=== PATIENT | female | born 1995 | race Caucasian/White ===

== ENCOUNTER 2020-05-15 15:18 | Emergency (ER) | payer BC, SELFPAY ==
[~2020-05-15] VITALS: Ht 160 cm; Wt 49.9 kg
[2020-05-15 15:30] VITALS: BP_SYST 104
--- NOTE | 2020-05-15 15:30 | NUR ---
PT TO REMAIN IN COVID TENT UNTIL ER BED BECOMES AVAILABLE.
--- NOTE | 2020-05-15 15:32 | NUR ---
PT IS AAO AND AMBULATORY C/O RIGHT SIDED ABDOMINAL PAIN X 3 DAYS. PT REPORTS N/V/D SINCE THEN AND HAD A FEVER 2 DAYS AGO. PT REPORTS PAIN SCALE 8/10. V/S STABLE CURRENTLY. PT DENIES SOB OR ANY RESPIRATORY S/S.
--- NOTE | 2020-05-15 16:30 | NUR ---
ER at bedside examining patient.
--- NOTE | 2020-05-15 16:32 | NUR ---
ua collected and sent to the lab
--- NOTE | 2020-05-15 16:35 | NUR ---
Patient to ER bed 3 to gown for evaluation. Side rails up.
[2020-05-15] MEDS ORDERED: ONDANSETRON HCL 4 MG/2 ML VIAL IVP ONE (16:45)
[2020-05-15] MEDS ORDERED: NACL 0.9% 1,000 ML IV ONE (16:45)
--- NOTE | 2020-05-15 16:45 | NUR ---
pt arrives from home w/ c/o diarrhea, nausea, and abd pain x 3 days. Pt denies any fever. Will continue to monitor.
[2020-05-15] MEDS ORDERED: KETOROLAC TROMETHAMINE 30 MG VIAL IVP ONE (17:00)
--- NOTE | 2020-05-15 17:00 | NUR ---
# 22 gauge angiocath placed to LAC. Use of asceptic technique. Opsite placed over site. Blood return noted. Blood for lab drawn from site. Flushed with 10 cc of normal saline. No evidence of infiltration noted. Patient tolerated well.
[2020-05-15 17:19] LABS: BILIRUBIN,URINE NEGATIVE (NEGATIVE); BLOOD, URINE 1+ (NEGATIVE); COLOR,URINE YELLOW (YELLOW); GLUCOSE,URINE NEGATIVE (NEGATIVE); KETONES,URINE NEGATIVE (NEGATIVE); LEUKOCYTE ESTERASE ,URINE NEGATIVE (NEGATIVE); NITRITE, URINE NEGATIVE (NEGATIVE); PROTEIN URINE NEGATIVE (NEGATIVE); UROBILINOGEN,URINE 0.2 (0.2-1.0)
[2020-05-15 17:20] LABS: CLARITY/URINE HAZY (CLEAR)
[2020-05-15 17:23] LABS: BACTERIA,URINE MODERATE /HPF (None Seen); MUCUS,URINE 2+ /LPF (None Seen); WBC,URINE 0-3 /HPF (0-3)
[2020-05-15 19:16] VITALS: BP_SYST 104
--- NOTE | 2020-05-15 19:17 | NUR ---
Patient given written and verbal discharge instructions and verbalizes understanding. ER MD discussed with patient the results and treatment provided. Patient in stable condition. ID arm band removed. IV catheter removed intact and dressing applied, no active bleeding. Rx of Zofran given. Patient educated on pain management and to follow up with PMD. Pain Scale 0/10. Opportunity for questions provided and answered. Medication side effect fact sheet provided.
== END 2020-05-15 19:16 | disposition home or self-care (01) ==
LOC: SED 15:18
DX: A08.4 Viral intestinal infection, unspecified (principal); R19.7 Diarrhea, unspecified
CPT/HCPCS: 81000; 96361; 96374; 96375; 99284; J1885; J2405; J7030

== ENCOUNTER 2021-04-18 11:13 | Emergency (ER) | payer BC, MEDICAID ==
[~2021-04-18] VITALS: Ht 160 cm; Wt 53.1 kg
[2021-04-18 11:25] VITALS: BP_SYST 107
[2021-04-18] MEDS ORDERED: NACL 0.9% 1,000 ML IV ONE (11:45)
[2021-04-18 11:53] LABS: BILIRUBIN,URINE NEGATIVE (NEGATIVE); BLOOD, URINE NEGATIVE (NEGATIVE); CLARITY/URINE CLEAR (CLEAR); COLOR,URINE YELLOW (YELLOW); GLUCOSE,URINE NEGATIVE (NEGATIVE); KETONES,URINE NEGATIVE (NEGATIVE); LEUKOCYTE ESTERASE ,URINE NEGATIVE (NEGATIVE); NITRITE, URINE NEGATIVE (NEGATIVE); PH,URINE 7.5 (5.0-8.0); PROTEIN URINE NEGATIVE (NEGATIVE); UROBILINOGEN,URINE 0.2 (0.2-1.0)
[2021-04-18 12:19] LABS: BASOPHILS % (AUTO) 0.6 % (0.0-2.0); EOSINOPHILS % (AUTO) 0.4 % (0.0-4.0); HEMATOCRIT 35.4 % (36-48); HEMOGLOBIN 12.3 g/dL (12.0-16.0); LYMPHOCYTES # (AUTO) 0.9 K/uL (1.0-5.5); LYMPHOCYTES % (AUTO) 15.7 % (20.5-51.5); MEAN CORPUSCULAR HEMOGLOBIN 30 pg (27-31); MEAN CORPUSCULAR HGB CONC 35 % (32-36); MEAN CORPUSCULAR VOLUME 86 fL (79.0-98.0); MONOCYTES # (AUTO) 0.6 K/uL (0.0-1.0); MONOCYTES % (AUTO) 9.6 % (1.7-9.3); NEUTROPHILS # (AUTO) 4.4 K/uL (1.8-7.7); NEUTROPHILS % (AUTO) 73.7 % (40.0-70.0); PLATELET COUNT (AUTO) 254 K/uL (130-430); RED BLOOD CELL COUNT(AUTO) 4.12 MIL/uL (4.2-6.2); RED CELL DISTRIBUTION WIDTH 12.3 % (9.0-15.0)
[2021-04-18 12:35] LABS: CALCIUM 8.8 mg/dL (8.4-11.0); CREATININE 0.55 mg/dL (0.55-1.30)
[2021-04-18 12:47] LABS: ALBUMIN 3.5 g/dL (3.4-4.8); TOTAL BILIRUBIN 0.5 mg/dL (0.0-1.0)
[2021-04-18] MEDS ORDERED: METO-290 PO (13:37)
[2021-04-18 13:59] VITALS: BP_SYST 107
== END 2021-04-18 13:59 | disposition home or self-care (01) ==
LOC: SED 11:13
DX: O99.611 Diseases of the digestive system complicating pregnancy, first trimester (principal); K52.9 Noninfective gastroenteritis and colitis, unspecified; Z20.822 Contact with and (suspected) exposure to COVID-19; Z3A.01 Less than 8 weeks gestation of pregnancy
CPT/HCPCS: 36415; 76801; 80053; 81003; 81025; 83690; 84702; 85025; 87426; 96360; 99284; J7030

== ENCOUNTER 2021-04-30 09:35 | Emergency (ER) | payer BC, MEDICAID ==
[~2021-04-30] VITALS: Ht 162.6 cm; Wt 49.9 kg
[2021-04-30 09:35] VITALS: BP_SYST 104
[~2021-04-30 09:35] MED LIST: METO-290 PO
--- NOTE | 2021-04-30 09:35 | NUR ---
BROUGHT BACK TO BED #7 AND TRIAGED. REPORT GIVEN TO PAMELA
--- NOTE | 2021-04-30 09:37 | NUR ---
PT CAME TO ER C/O N/V STARTING THIS AM, STATES SHE THREW UP BLOOD. ALSO REPORTS EPIGASTRIC ABD PAIN AND STATES SHE IS 8 WEEKS . DENIES ANY VAGINAL BLEEDING. PT IS AMBULATORY, AAOX4, V/S STABLE UPON ARRIVAL
--- NOTE | 2021-04-30 09:48 | NUR ---
ER DR. CAMPBELL AT THE BEDSIDE EXAMINING PT
[2021-04-30] MEDS ORDERED: NACL 0.9% 1,000 ML IV ONE (10:00)
[2021-04-30] MEDS ORDERED: ONDANSETRON 4 MG ODT TAB PO ONE (10:00)
--- NOTE | 2021-04-30 10:00 | NUR ---
# 20 gauge angiocath placed to LAC. Use of asceptic technique. Opsite placed over site. Blood return noted. Blood for lab drawn from site. Flushed with 10 cc of normal saline. No evidence of infiltration noted. Patient tolerated well.
[2021-04-30 10:09] LABS: BILIRUBIN,URINE NEGATIVE (NEGATIVE); BLOOD, URINE NEGATIVE (NEGATIVE); CLARITY/URINE CLOUDY (CLEAR); COLOR,URINE YELLOW (YELLOW); GLUCOSE,URINE NEGATIVE (NEGATIVE); KETONES,URINE NEGATIVE (NEGATIVE); LEUKOCYTE ESTERASE ,URINE NEGATIVE (NEGATIVE); NITRITE, URINE NEGATIVE (NEGATIVE); PH,URINE 8.5 (5.0-8.0); PROTEIN URINE NEGATIVE (NEGATIVE); UROBILINOGEN,URINE 0.2 (0.2-1.0)
[2021-04-30 10:20] LABS: BASOPHILS % (AUTO) 0.5 % (0.0-2.0); EOSINOPHILS % (AUTO) 0.4 % (0.0-4.0); HEMATOCRIT 36.1 % (36-48); HEMOGLOBIN 12.4 g/dL (12.0-16.0); LYMPHOCYTES # (AUTO) 0.9 K/uL (1.0-5.5); LYMPHOCYTES % (AUTO) 15.7 % (20.5-51.5); MEAN CORPUSCULAR HEMOGLOBIN 30 pg (27-31); MEAN CORPUSCULAR HGB CONC 35 % (32-36); MEAN CORPUSCULAR VOLUME 86 fL (79.0-98.0); MONOCYTES # (AUTO) 0.4 K/uL (0.0-1.0); NEUTROPHILS # (AUTO) 4.5 K/uL (1.8-7.7); NEUTROPHILS % (AUTO) 76.4 % (40.0-70.0); PLATELET COUNT (AUTO) 250 K/uL (130-430); RED CELL DISTRIBUTION WIDTH 12.4 % (9.0-15.0); WHITE BLOOD COUNT (AUTO) 5.9 K/uL (4.8-10.8)
[2021-04-30 10:28] LABS: BACTERIA,URINE RARE /HPF (None Seen); RBC,URINE 0-3 /HPF (0-3); WBC,URINE 0-3 /HPF (0-3)
[2021-04-30 10:29] LABS: URINE AMORPHOUS PHOSPHATES 4+ /HPF (None Seen)
[2021-04-30 10:32] LABS: ANION GAP 10 (5-15); CALCIUM 8.9 mg/dL (8.4-11.0); CHLORIDE 104 mmol/L (98-107); CREATININE 0.65 mg/dL (0.55-1.30); GLUCOSE 95 mg/dL (70-99); POTASSIUM 3.5 mmol/L (3.5-5.1); SODIUM SERUM 139 mmol/L (136-145); UREA NITROGEN, BLOOD 8 mg/dL (8-21)
[2021-04-30 10:33] LABS: GFR AFRICAN AMERICAN 144 mL/min (>90)
[2021-04-30 10:42] LABS: ACETONE, SERUM NEGATIVE (NEGATIVE)
--- NOTE | 2021-04-30 10:43 | NUR ---
TAKEN TO RADIOLOGY AMBULATORY
--- NOTE | 2021-04-30 10:51 | NUR ---
RETURN FROM ULTRASOUND
[2021-04-30 10:59] LABS: ALANINE AMINOTRANSFERASE 15 U/L (12-78); ALBUMIN 3.6 g/dL (3.4-4.8); AMYLASE 56 U/L (0-100); ASPARTATE AMINOTRANSFERASE 11 U/L (10-37); LIPASE 113 U/L (73-393); TOTAL BILIRUBIN 0.5 mg/dL (0.0-1.0)
[2021-04-30 11:00] LABS: HCG,QUANTITATIVE 109245 mIU/ML (0-6)
--- NOTE | 2021-04-30 11:00 | NUR ---
PT RESTING IN BED, NO S/SX OF DISTRESS, V/S STABLE
[2021-04-30] MEDS ORDERED: ONDA4TAB5 PO (11:37)
[2021-04-30 11:44] VITALS: BP_SYST 111
--- NOTE | 2021-04-30 11:46 | NUR ---
Patient given written and verbal discharge instructions and verbalizes understanding. ER MD discussed with patient the results and treatment provided. Patient in stable condition. ID arm band removed. IV catheter removed intact and dressing applied, no active bleeding. Rx of ZOFRAN given. Patient educated on pain management and to follow up with PMD. Pain Scale 0/10. Opportunity for questions provided and answered. Medication side effect fact sheet provided.
== END 2021-04-30 11:46 | disposition home or self-care (01) ==
LOC: SED 09:35
DX: O21.0 Mild hyperemesis gravidarum (principal); Z3A.01 Less than 8 weeks gestation of pregnancy; Z79.899 Other long term (current) drug therapy
CPT/HCPCS: 36415; 76801; 80053; 81000; 81025; 82009; 82150; 83605; 83690; 84702; 85025; 96360; 99284; J7030; Q0162

== ENCOUNTER 2021-06-02 22:27 | Emergency (ER) | payer BC, MEDICAID, SELFPAY ==
[~2021-06-02] VITALS: Ht 160 cm; Wt 53.5 kg
[~2021-06-02 22:27] MED LIST changes: +ONDA4TAB5 PO
[2021-06-02 22:36] VITALS: BP_SYST 126
[2021-06-03] MEDS ORDERED: METOCLOPRAMIDE HCL 10 MG/2 ML VIAL IVP ONE (01:00)
[2021-06-03] MEDS ORDERED: MORPHINE 4 MG INJ. 4 MG/ML VIAL IVP ONE (01:00)
[2021-06-03] MEDS ORDERED: DIPHENHYDRAMINE INJ 50 MG/ML VIAL IVP ONE (01:00)
[2021-06-03] MEDS ORDERED: NACL 0.9% 1,000 ML IV ONE (01:00)
[2021-06-03 01:16] LABS: BILIRUBIN,URINE NEGATIVE (NEGATIVE); BLOOD, URINE NEGATIVE (NEGATIVE); CLARITY/URINE CLEAR (CLEAR); COLOR,URINE YELLOW (YELLOW); GLUCOSE,URINE NEGATIVE (NEGATIVE); KETONES,URINE NEGATIVE (NEGATIVE); LEUKOCYTE ESTERASE ,URINE NEGATIVE (NEGATIVE); NITRITE, URINE NEGATIVE (NEGATIVE); PROTEIN URINE NEGATIVE (NEGATIVE); UROBILINOGEN,URINE 0.2 (0.2-1.0)
[2021-06-03 01:21] LABS: EOSINOPHILS % (AUTO) 0.5 % (0.0-4.0); HEMOGLOBIN 11.9 g/dL (12.0-16.0); MEAN CORPUSCULAR HGB CONC 35 % (32-36); MONOCYTES # (AUTO) 0.7 K/uL (0.0-1.0); NEUTROPHILS # (AUTO) 5.2 K/uL (1.8-7.7)
[2021-06-03 01:23] LABS: CALCIUM 8.7 mg/dL (8.4-11.0); CREATININE 0.46 mg/dL (0.55-1.30); POTASSIUM 3.7 mmol/L (3.5-5.1)
[2021-06-03 01:26] LABS: BASOPHILS % (AUTO) 0.5 % (0.0-2.0); LYMPHOCYTES # (AUTO) 1.7 K/uL (1.0-5.5); MEAN CORPUSCULAR HEMOGLOBIN 31 pg (27-31); MEAN CORPUSCULAR VOLUME 88 fL (79.0-98.0); MONOCYTES % (AUTO) 8.5 % (1.7-9.3); NEUTROPHILS % (AUTO) 68.5 % (40.0-70.0); PLATELET COUNT (AUTO) 269 K/uL (130-430); RED BLOOD CELL COUNT(AUTO) 3.87 MIL/uL (4.2-6.2); WHITE BLOOD COUNT (AUTO) 7.6 K/uL (4.8-10.8)
[2021-06-03 01:53] LABS: ALBUMIN 3.4 g/dL (3.4-4.8); TOTAL BILIRUBIN 0.4 mg/dL (0.0-1.0)
[2021-06-03 10:46] VITALS: BP_SYST 96
== END 2021-06-03 10:45 | disposition home or self-care (01) ==
LOC: SED 22:27
DX: O26.892 Other specified pregnancy related conditions, second trimester (principal); R10.31 Right lower quadrant pain; O21.8 Other vomiting complicating pregnancy; Z3A.14 14 weeks gestation of pregnancy; Z20.822 Contact with and (suspected) exposure to COVID-19
CPT/HCPCS: 36415; 76705; 76805; 80053; 81003; 83690; 84702; 85025; 87426; 96361; 96374; 96375; 99285; J1200; J2270; J2765; J7030

== ENCOUNTER 2021-07-13 04:14 | Observation (INO) | payer BC, MEDICAID, SELFPAY ==
[~2021-07-13] VITALS: Ht 160 cm; Wt 56.2 kg
== END 2021-07-13 05:37 | disposition home or self-care (01) ==
LOC: SPU 04:14
PROVIDERS: ADMIT Specialist; ATTEND Specialist
DX: O26.892 Other specified pregnancy related conditions, second trimester (principal); R10.32 Left lower quadrant pain; R06.02 Shortness of breath; O99.891 Other specified diseases and conditions complicating pregnancy; M79.601 Pain in right arm; O99.342 Other mental disorders complicating pregnancy, second trimester; F41.9 Anxiety disorder, unspecified; Z3A.20 20 weeks gestation of pregnancy
CPT/HCPCS: 81002; G0378

== ENCOUNTER 2021-11-17 19:53 | Inpatient (IN) | payer BC, MEDICAID, SELFPAY ==
[~2021-11-17] VITALS: Ht 2.5 cm; Wt 0.0 kg
[2021-11-17 21:20] LABS: BASOPHILS % (AUTO) 0.5 % (0.0-2.0); EOSINOPHILS % (AUTO) 0.2 % (0.0-4.0); HEMATOCRIT 35.2 % (36-48); LYMPHOCYTES # (AUTO) 1.1 K/uL (1.0-5.5); LYMPHOCYTES % (AUTO) 15.3 % (20.5-51.5); MEAN CORPUSCULAR HEMOGLOBIN 30 pg (27-31); MEAN CORPUSCULAR HGB CONC 34 % (32-36); MEAN CORPUSCULAR VOLUME 87 fL (79.0-98.0); MONOCYTES # (AUTO) 0.7 K/uL (0.0-1.0); NEUTROPHILS # (AUTO) 5.4 K/uL (1.8-7.7); PLATELET COUNT (AUTO) 195 K/uL (130-430); RED BLOOD CELL COUNT(AUTO) 4.03 MIL/uL (4.2-6.2); RED CELL DISTRIBUTION WIDTH 12.7 % (9.0-15.0); WHITE BLOOD COUNT (AUTO) 7.3 K/uL (4.8-10.8)
[2021-11-17 21:44] LABS: CALCIUM 8.9 mg/dL (8.4-11.0); CREATININE 0.57 mg/dL (0.55-1.30); POTASSIUM 3.9 mmol/L (3.5-5.1)
[2021-11-17 21:50] LABS: ALBUMIN 2.4 g/dL (3.4-4.8); TOTAL BILIRUBIN 0.3 mg/dL (0.0-1.0)
[2021-11-17] MEDS ORDERED: FLUVASTATIN SODIUM 20 MG PO SCH (22:30)
[2021-11-17] MEDS ORDERED: CHOLESTYRAMINE/SUCROSE 4 GM/PACKET ONE (22:47)
[2021-11-17] MEDS: CHOLESTYRAMINE/SUCROSE 4 GM/PACKET PO SCH (23:05)
[2021-11-17] MEDS ORDERED: TEMAZEPAM 15 MG CAPSULE ONE (23:18)
[2021-11-18] MEDS ORDERED: TERBUTALINE SULFATE 1 MG/ML VIAL SUBCUT ONE (01:30)
[2021-11-18] MEDS ORDERED: LR 1,000 ML IV ONE (01:30)
[2021-11-18] MEDS ORDERED: OXYTOCIN/0.9 % SODIUM CHLORIDE 1,000 ML IV SCH ×2 (01:30→17:00)
[2021-11-18] MEDS: NALBUPHINE HCL 10 MG/ML AMP IVP PRN ×3 (02:22→17:55)
[2021-11-18] MEDS: LR 1,000 ML IV SCH ×2 (02:41→06:14)
[2021-11-18 04:36] VITALS: BP_SYST 142
[2021-11-18] MEDS ORDERED: ROPIVACAINE HCL/PF 0.2% 200 ML ONE (05:51)
[2021-11-18] MEDS ORDERED: fentaNYL CITRATE/PF 100 MCG/2 ML AMP ONE (05:51)
[2021-11-18] MEDS ORDERED: ATORVASTATIN 10 MG TABLET PO SCH (07:00)
[2021-11-18] MEDS: CHOLESTYRAMINE/SUCROSE 4 GM/PACKET PO SCH ×2 (10:00→14:00)
[2021-11-18] MEDS ORDERED: METHYLERGONOVINE MALEATE 0.2 MG/ML AMP IM ONE (16:24)
[2021-11-18] MEDS ORDERED: METHYLERGONOVINE MALEATE 0.2 MG/ML AMP ONE (16:24)
[2021-11-18] MEDS ORDERED: FENT2mCg/mL-ROPIVA0.2%/NS EPID 200 ML EP SCH (16:45)
[2021-11-18] MEDS ORDERED: LR 500 ML IV ONE (16:45)
[2021-11-18] MEDS ORDERED: ANUSOL 1 EA SUPP.RECT (PREPARATION H) RC PRN (17:00)
[2021-11-18] MEDS ORDERED: NALOXONE HCL 0.4 MG/ML AMP (NARCAN) IVP PRN (17:00)
[2021-11-18] MEDS ORDERED: OXYCODONE/ACETAMINOPHEN 5-325 TABLET PO PRN ×2 (17:00)
[2021-11-18] MEDS ORDERED: MEASLES,MUMPS&RUBELLA VACC/PF 12500 UNIT/0.5 ML VIAL SUBQ PRN (17:00)
[2021-11-18] MEDS ORDERED: DIPH-TET-PERTUS Vaccine 0.5 ML VIAL (ADACEL) I.M. PRN (17:00)
[2021-11-18] MEDS ORDERED: DERMOPLAST SPRAY TP PRN (17:00)
[2021-11-18] MEDS ORDERED: OXYTOCIN/0.9 % SODIUM CHLORIDE 1,000 ML IV ONE (17:00)
[2021-11-18] MEDS ORDERED: METHYLERGONOVINE MALEATE 0.2 MG TABLET PO PRN (17:00)
[2021-11-18] MEDS ORDERED: LANOLIN 7 GM OINT. TP PRN (17:00)
[2021-11-18] MEDS ORDERED: RHO(D) IMMUNE GLOBULIN/MALTOSE 1500 UNITS/1.3 ML (WINHRO) IM PRN (17:00)
[2021-11-18] MEDS ORDERED: HYDROcodone/ACETAMIN 5-325 MG TAB (NORCO/ VICODIN) PO PRN (17:00)
[2021-11-18] MEDS ORDERED: HYDROCORTISONE 0.5% CREAM 28.4 GM CREAM.GM. TP PRN (17:00)
[2021-11-18] MEDS ORDERED: WITCH HAZEL LEAF 1 MED.PAD MED.PAD TP PRN (17:00)
[2021-11-18] MEDS ORDERED: ONDANSETRON HCL 4 MG/2 ML VIAL IVP PRN (17:45)
[2021-11-18] MEDS: IBUPROFEN 600 MG TABLET PO SCH (18:57)
[2021-11-18] MEDS ORDERED: TEMAZEPAM 7.5 MG CAPSULE PO SCH (21:00)
[2021-11-18] MEDS ORDERED: SENNOSIDES/DOCUSATE SODIUM 1 TAB TABLET(SENOKOT-S) PO SCH (21:00)
[2021-11-18] MEDS ORDERED: TEMAZEPAM 15 MG CAPSULE PO PRN (21:00)
[2021-11-19] MEDS: IBUPROFEN 600 MG TABLET PO SCH ×4 (06:42→18:33)
[2021-11-19] MEDS ORDERED: MINERAL OIL 30 ML UDC PO ONE (07:40)
[2021-11-19] MEDS ORDERED: LIDOCAINE PF 1% 30ML(POUR BTL) INJ ONE (07:40)
[2021-11-19] MEDS ORDERED: DOCUSATE SODIUM 100 MG CAPSULE PO SCH (09:00)
[2021-11-19 09:42] LABS: BASOPHILS % (AUTO) 0.3 % (0.0-2.0); EOSINOPHILS % (AUTO) 0.3 % (0.0-4.0); HEMATOCRIT 25.4 % (36-48); HEMOGLOBIN 8.8 g/dL (12.0-16.0); LYMPHOCYTES # (AUTO) 1.3 K/uL (1.0-5.5); LYMPHOCYTES % (AUTO) 12.7 % (20.5-51.5); MEAN CORPUSCULAR HEMOGLOBIN 31 pg (27-31); MEAN CORPUSCULAR HGB CONC 35 % (32-36); MEAN CORPUSCULAR VOLUME 88 fL (79.0-98.0); MONOCYTES # (AUTO) 0.9 K/uL (0.0-1.0); MONOCYTES % (AUTO) 8.8 % (1.7-9.3); NEUTROPHILS % (AUTO) 77.9 % (40.0-70.0); PLATELET COUNT (AUTO) 157 K/uL (130-430); RED BLOOD CELL COUNT(AUTO) 2.88 MIL/uL (4.2-6.2); RED CELL DISTRIBUTION WIDTH 12.8 % (9.0-15.0); WHITE BLOOD COUNT (AUTO) 10.2 K/uL (4.8-10.8)
== END 2021-11-19 23:40 | disposition home or self-care (01) | DRG 805 ==
LOC: SPU 19:55 → OBSVTOIN 11-18 01:00 → SPU 11-19 12:26
PROVIDERS: ADMIT Specialist; ATTEND Specialist
PROC: 10E0XZZ Delivery of Products of Conception, External Approach (ICD-10-PCS; principal; 2021-11-18)
PROC: 0W8NXZZ Division of Female Perineum, External Approach (ICD-10-PCS; 2021-11-18)
PROC: 3E0R3BZ Introduction of Anesthetic Agent into Spinal Canal, Percutaneous Approach (ICD-10-PCS; 2021-11-18)
PROC: 00HU33Z Insertion of Infusion Device into Spinal Canal, Percutaneous Approach (ICD-10-PCS; 2021-11-18)
DX: O26.62 Liver and biliary tract disorders in childbirth (principal); K83.1 Obstruction of bile duct; Z37.0 Single live birth; O42.92 Full-term premature rupture of membranes, unspecified as to length of time between rupture and onset of labor; O77.0 Labor and delivery complicated by meconium in amniotic fluid; Z20.822 Contact with and (suspected) exposure to COVID-19; Z3A.37 37 weeks gestation of pregnancy
CPT/HCPCS: 36415; 80053; 81002; 85025; 86592; 86886; 86900; 86901; 94760; G0378; J2001; J2210; J2300; J2405; J2590; J3010

== ENCOUNTER 2023-05-23 19:57 | Emergency (ER) | payer BC, MEDICAID ==
[~2023-05-23] VITALS: Ht 160 cm; Wt 56.7 kg
[2023-05-23 20:09] VITALS: BP_SYST 111; PULSE 98; RESP 18; TEMP 98.4; O2SAT 98
[2023-05-23 21:21] LABS: BASOPHILS % (AUTO) 0.4 % (0.0-2.0); EOSINOPHILS % (AUTO) 0.6 % (0.0-4.0); HEMATOCRIT 36.6 % (36-48); HEMOGLOBIN 12.6 g/dL (12.0-16.0); LYMPHOCYTES # (AUTO) 1.6 K/uL (1.0-5.5); LYMPHOCYTES % (AUTO) 19.2 % (20.5-51.5); MEAN CORPUSCULAR HEMOGLOBIN 29 pg (27-31); MEAN CORPUSCULAR HGB CONC 34 % (32-36); MEAN CORPUSCULAR VOLUME 84 fL (79.0-98.0); MONOCYTES # (AUTO) 0.7 K/uL (0.0-1.0); MONOCYTES % (AUTO) 9.3 % (1.7-9.3); NEUTROPHILS # (AUTO) 5.7 K/uL (1.8-7.7); NEUTROPHILS % (AUTO) 70.5 % (40.0-70.0); PLATELET COUNT (AUTO) 318 K/uL (130-430); RED BLOOD CELL COUNT(AUTO) 4.37 MIL/uL (4.2-6.2); RED CELL DISTRIBUTION WIDTH 12.8 % (9.0-15.0); WHITE BLOOD COUNT (AUTO) 8.1 K/uL (4.8-10.8)
[2023-05-23 21:29] LABS: CALCIUM 8.6 mg/dL (8.4-11.0); CREATININE 0.56 mg/dL (0.55-1.30)
[2023-05-23 21:35] LABS: ALBUMIN 3.9 g/dL (3.4-4.8); TOTAL BILIRUBIN 0.7 mg/dL (0.0-1.0)
--- NOTE | 2023-05-23 23:43 | NUR ---
Patient to ER bed 03 to gown for evaluation. Side rails up. Report given to TIMOTHY YU
--- NOTE | 2023-05-23 23:49 | NUR ---
ER at bedside examining patient.
[2023-05-24] MEDS ORDERED: ONDANSETRON 4 MG ODT TAB PO ONE
--- NOTE | 2023-05-24 00:06 | NUR ---
PT BIB [employer] WITH C/O NAUSEA X 1 WEEK, UNABLE TO HOLD FOOD DOWN, VOMITING. PT REPORTS BEING 9 WEEKS . SECOND . DENIES BLEEDING, CRAMPING AND DISHCHARGE. A/O X 4, AMBULATORY.
[2023-05-24 00:10] VITALS: BP_SYST 100; PULSE 72; RESP 18; TEMP 97.5; O2SAT 99
[2023-05-24 00:16] LABS: BILIRUBIN,URINE NEGATIVE (NEGATIVE); BLOOD, URINE NEGATIVE (NEGATIVE); CLARITY/URINE CLEAR (CLEAR); COLOR,URINE YELLOW (YELLOW); GLUCOSE,URINE NEGATIVE (NEGATIVE); KETONES,URINE NEGATIVE (NEGATIVE); LEUKOCYTE ESTERASE ,URINE NEGATIVE (NEGATIVE); NITRITE, URINE NEGATIVE (NEGATIVE); PH,URINE 7.5 (5.0-8.0); PROTEIN URINE NEGATIVE (NEGATIVE); UROBILINOGEN,URINE 0.2 (0.2-1.0)
--- NOTE | 2023-05-24 01:40 | NUR ---
PT IN ULTRASOUND
[2023-05-24] MEDS ORDERED: ONDA-8 TL (02:46)
--- NOTE | 2023-05-24 03:08 | NUR ---
Patient given written and verbal discharge instructions and verbalizes understanding. ER MD discussed with patient the results and treatment provided. Patient in stable condition. ID arm band removed. Rx of ZOFRAN given. Patient educated on pain management and to follow up with PMD. Pain Scale 0/10. Opportunity for questions provided and answered. Medication side effect fact sheet provided.
== END 2023-05-24 03:07 | disposition home or self-care (01) ==
LOC: SED 19:57
DX: O21.9 Vomiting of pregnancy, unspecified (principal); Z3A.01 Less than 8 weeks gestation of pregnancy; Z79.899 Other long term (current) drug therapy
CPT/HCPCS: 99284; 80053; 84702; 83690; 85025; 86900; 86901; 36415; 81025; 81003; 76856; Q0162